=== PATIENT | male | born 1990 | race Caucasian/White ===

== ENCOUNTER 2018-09-03 08:11 | Inpatient (IN) | payer OTHER ==
[~2018-09-03] VITALS: Ht 185.4 cm; Wt 76.8 kg
[2018-09-03 09:58] VITALS: BP 141/78
[2018-09-03] MEDS ORDERED: AMOX TR-K CLV1 EAC4 PO (10:06)
[2018-09-03] MEDS ORDERED: PREDNISONE 20 M20 MG (10:06)
[2018-09-03] MEDS ORDERED: ACETAMINOPHEN-1 EAC1 PO (10:07)
[2018-09-03 10:48] LABS: HEMATOCRIT 36.7 % (42.0-52.0); HEMOGLOBIN 12.4 gm/dL (14.0-18.0); MCH 30.7 pg (26.0-34.0); MCHC 33.8 g/dL (28.0-37.0); RBC 4.03 mil/uL (4.50-6.00); RDW 12.3 % (10.5-14.5); WBC 13.9 thou/uL (4.0-11.0)
[2018-09-03 11:04] LABS: ALBUMIN 3.2 g/dL (3.4-5.0); CALCIUM 9.6 mg/dL (8.5-10.1); POTASSIUM 3.7 mmol/L (3.5-5.1); TOTAL BILIRUBIN 0.4 mg/dL (<0.1-1.0); TOTAL PROTEIN 7.9 g/dL (6.4-8.2)
--- NOTE | 2018-09-03 15:16 | NUR ---
ASSUMED CARE AT 1100, ADMISSION DONE, MEDS GIVEN, VSS. IV ANTIBIOTICS GIVEN. WAS SEEN BY DR SANDOVAL. DISCHARGE ORDER RECEIVED, PERIPHERAL IV WAS TAKEN OUT. WILL CONTINUE WITH DISCHARGE PLANNING NEEDED.
[2018-09-03 16:05] VITALS: BP 141/78
== END 2018-09-03 17:20 | disposition home or self-care (01) | DRG 153 ==
LOC: CAT 08:11 → 4E 09:23
PROVIDERS: ADMIT Family Medicine
DX: J36 Peritonsillar abscess (principal); F17.210 Nicotine dependence, cigarettes, uncomplicated; F12.90 Cannabis use, unspecified, uncomplicated; Z79.899 Other long term (current) drug therapy
CPT/HCPCS: 10783